=== PATIENT | male | born 1970 | race Caucasian/White ===

== ENCOUNTER 2020-09-12 18:09 | Emergency (ER) | payer SELFPAY ==
[2020-09-12] MEDS ORDERED: HYDROmorphone 0.5 MG/0.5 ML Syringe IVPUSH ONE ×2 (18:49→19:32)
[2020-09-12] MEDS ORDERED: Ondansetron 4 MG/2 ML SDV IVPUSH ONE (18:49)
[2020-09-12] MEDS ORDERED: Sodium Chloride 0.9% 1,000 ML IV SCH (19:00)
[2020-09-12] MEDS ORDERED: Ketorolac 30 MG/ML SDV IVPUSH ONE (19:04)
[2020-09-12] MEDS ORDERED: Ketorolac 30 MG/ML SDV ONE (19:05)
[2020-09-12] MEDS ORDERED: Cyclobenzaprine 10 MG Tab PO ONE (20:09)
--- NOTE | 2020-09-12 20:39 | EDM.PDOC ---
ED HPI GENERAL MEDICAL PROBLEM - General Chief Complaint: Back Pain or Injury Stated Complaint: [facility] Time Seen by Provider: 09/12/20 18:53 Source of Information: Reports: Patient, RN Notes Reviewed History Limitations: Reports: No Limitations - History of Present Illness INITIAL COMMENTS - FREE TEXT/NARRATIVE: Patient is a 50-year-old male presenting to the emergency department with complaints of acute onset of mid midline back pain as well as left-sided back pain. States that he was at work when the pain came on acutely. He has not done any recent heavy lifting or injured his back in any way. He has no history of chronic back pain. Denies any history of kidney stones. He describes the pain as constant with occasional episodes of worsening pain. Vital signs on triage were stable. Blood pressure 139/93, pulse 68, temperature 96.9, respiratory 16, oxygen 100% on room air. Middle Back Pain Score (Numeric/FACES): 2 - Related Data Allergies Allergy/AdvReac Type Severity Reaction Status Date / Time Influenza Virus Vaccines Allergy Anaphylactic Verified 09/12/20 18:15 Shock tetanus and diphtheria Allergy Anaphylactic Verified 09/12/20 18:15 toxoids Shock Home Meds: Home Meds . [No Known Home Meds] 09/12/20 [History] Past Medical History - Past Health History Medical/Surgical History: Denies Medical/Surgical History Social & Family History - Tobacco Use Tobacco Use Status *Q: Current Every Day Tobacco User Years of Tobacco use: 30 Packs/Tins Daily: 0.5 - Caffeine Use Caffeine Use: Reports: Energy Drinks - Recreational Drug Use Recreational Drug Use: No ED ROS GENERAL - Review of Systems Review Of Systems: See Below Constitutional: Reports: No Symptoms. Denies: Fever, Chills, Weakness HEENT: Reports: No Symptoms Respiratory: Reports: No Symptoms. Denies: Shortness of Breath, Pleuritic Chest Pain Cardiovascular: Denies: Chest Pain, Lightheadedness, Palpitations Endocrine: Reports: No Symptoms GI/Abdominal: Reports: Abdominal Pain (mild intermittent with episodes of worsening pain) : Reports: No Symptoms Musculoskeletal: Reports: Back Pain Skin: Reports: No Symptoms Neurological: Reports: No Symptoms. Denies: Dizziness, Headache Psychiatric: Reports: No Symptoms Hematologic/Lymphatic: Reports: No Symptoms Immunologic: Reports: No Symptoms ED EXAM,LOWER BACK PAIN/INJURY - Physical Exam Exam: See Below General Appearance: Alert, Moderate Distress Respiratory/Chest: No Respiratory Distress, Lungs Clear, Normal Breath Sounds, No Accessory Muscle Use, Chest Non-Tender Cardiovascular: Normal Peripheral Pulses, Regular Rate, Rhythm, No Edema, No Gallop, No JVD, No Murmur, No Rub GI/Abdominal: Normal Bowel Sounds, Soft, Non-Tender, No Organomegaly, No Distention, No Abnormal Bruit, No Mass Back Exam: Normal Inspection, Full Range of Motion, CVA Tenderness (L). No: CVA Tenderness (R) Neurological: Alert, Normal Mood/Affect, Normal Dorsiflexion, CN II-XII Intact, Normal Plantar Flexion, Normal Gait, Normal Reflexes, No Motor/Sensory Deficits, Oriented x 3 Psychiatric: Normal Affect, Normal Mood Skin Exam: Cool, Diaphoretic #1 Interpretation EKG Date: 09/12/20 Time: 19:57 Rhythm: NSR Rate (Beats/Min): 51 [place]: Normal P-Wave: Present QRS: Normal ST-T: Normal QT: Normal Comparison: NA - No Prior EKG #2 Interpretation EKG Date: 09/12/20 Time: 21:21 Rhythm: NSR Rate (Beats/Min): 71 [place]: Normal P-Wave: Present QRS: Normal ST-T: Normal QT: Normal Comparison: No Change Course - Vital Signs Last Recorded V/S: Last Vital Signs Temp 96.9 F 09/12/20 18:16 Pulse 65 09/12/20 20:40 Resp 16 09/12/20 18:16 BP 156/98 H 09/12/20 20:40 Pulse Ox 100 09/12/20 18:16 - Orders/Labs/Meds Labs: Laboratory Tests 09/12/20 09/12/20 09/12/20 Range/Units 18:44 18:44 18:44 WBC 8.69 (4.23-9.07) K/mm3 RBC 5.82 (4.63-6.08) M/mm3 Hgb 16.3 (13.7-17.5) gm/dl Hct 47.7 (40.1-51.0) % MCV 82.0 (79.0-92.2) fl MCH 28.0 (25.7-32.2) pg MCHC 34.2 (32.2-35.5) g/dl RDW Std Deviation 40.0 (35.1-43.9) fL Plt Count 218 (163-337) K/mm3 MPV 9.3 L (9.4-12.3) fl Neut % (Auto) 51.5 (34.0-67.9) % Lymph % (Auto) 38.4 (21.8-53.1) % [place] % (Auto) 7.0 (5.3-12.2) % Eos % (Auto) 2.1 (0.8-7.0) Baso % (Auto) 0.8 (0.1-1.2) % Neut # (Auto) 4.47 (1.78-5.38) K/mm3 Lymph # (Auto) 3.34 (1.32-3.57) K/mm3 [place] # (Auto) 0.61 (0.30-0.82) K/mm3 Eos # (Auto) 0.18 (0.04-0.54) K/mm3 Baso # (Auto) 0.07 (0.01-0.08) K/mm3 D-Dimer, Quantitative (0.19-0.50) mg/L Sodium 142 (136-145) mEq/L Potassium 4.2 (3.5-5.1) mEq/L Chloride 105 (98-107) mEq/L Carbon Dioxide 27 (21-32) mEq/L Anion Gap 14.2 (5-15) BUN 13 (7-18) mg/dL Creatinine 1.4 H (0.7-1.3) mg/dL Est Cr Clr Drug Dosing 65.74 mL/min Estimated GFR (MDRD) 53 (>60) mL/min BUN/Creatinine Ratio 9.3 L (14-18) Glucose 100 (74-106) mg/dL Calcium 9.2 (8.5-10.1) mg/dL Total Bilirubin 0.5 (0.2-1.0) mg/dL AST 18 (15-37) U/L ALT 34 (16-63) U/L Alkaline Phosphatase 86 (46-116) U/L Troponin I < 0.017 (0.00-0.056) ng/mL C-Reactive Protein (<1.0) mg/dL Total Protein 7.4 (6.4-8.2) g/dl Albumin 3.8 (3.4-5.0) g/dl Globulin 3.6 gm/dL Albumin/Globulin Ratio 1.1 (1-2) Urine Color (Yellow) Urine Appearance (Clear) Urine pH (5.0-8.0) Ur Specific [place] (1.005-1.030) Urine Protein (Negative) Urine Glucose (UA) (Negative) Urine Ketones (Negative) Urine Occult Blood (Negative) Urine Nitrite (Negative) Urine Bilirubin (Negative) Urine Urobilinogen (0.2-1.0) Ur Leukocyte Esterase (Negative) Urine RBC (0-5) /hpf Urine WBC (0-5) /hpf Ur Squamous Epith Cells (0-5) /hpf Urine Bacteria (FEW) /hpf Urine Mucus (FEW) /hpf SARS-CoV-2 RNA (EDUARDO) (NEGATIVE) 09/12/20 09/12/20 09/12/20 Range/Units 18:44 18:44 19:38 WBC (4.23-9.07) K/mm3 RBC (4.63-6.08) M/mm3 Hgb (13.7-17.5) gm/dl Hct (40.1-51.0) % MCV (79.0-92.2) fl MCH (25.7-32.2) pg MCHC (32.2-35.5) g/dl RDW Std Deviation (35.1-43.9) fL Plt Count (163-337) K/mm3 MPV (9.4-12.3) fl Neut % (Auto) (34.0-67.9) % Lymph % (Auto) (21.8-53.1) % [place] % (Auto) (5.3-12.2) % Eos % (Auto) (0.8-7.0) Baso % (Auto) (0.1-1.2) % Neut # (Auto) (1.78-5.38) K/mm3 Lymph # (Auto) (1.32-3.57) K/mm3 [place] # (Auto) (0.30-0.82) K/mm3 Eos # (Auto) (0.04-0.54) K/mm3 Baso # (Auto) (0.01-0.08) K/mm3 D-Dimer, Quantitative 11.81 H (0.19-0.50) mg/L Sodium (136-145) mEq/L Potassium (3.5-5.1) mEq/L Chloride (98-107) mEq/L Carbon Dioxide (21-32) mEq/L Anion Gap (5-15) BUN (7-18) mg/dL Creatinine (0.7-1.3) mg/dL Est Cr Clr Drug Dosing mL/min Estimated GFR (MDRD) (>60) mL/min BUN/Creatinine Ratio (14-18) Glucose (74-106) mg/dL Calcium (8.5-10.1) mg/dL Total Bilirubin (0.2-1.0) mg/dL AST (15-37) U/L ALT (16-63) U/L Alkaline Phosphatase (46-116) U/L Troponin I (0.00-0.056) ng/mL C-Reactive Protein 1.0 (<1.0) mg/dL Total Protein (6.4-8.2) g/dl Albumin (3.4-5.0) g/dl Globulin gm/dL Albumin/Globulin Ratio (1-2) Urine Color Yellow (Yellow) Urine Appearance Clear (Clear) Urine pH 7.0 (5.0-8.0) Ur Specific [place] 1.025 (1.005-1.030) Urine Protein Trace H (Negative) Urine Glucose (UA) Negative (Negative) Urine Ketones Negative (Negative) Urine Occult Blood Trace-intact H (Negative) Urine Nitrite Negative (Negative) Urine Bilirubin Negative (Negative) Urine Urobilinogen 0.2 (0.2-1.0) Ur Leukocyte Esterase Negative (Negative) Urine RBC 0-5 (0-5) /hpf Urine WBC 0-5 (0-5) /hpf Ur Squamous Epith Cells 0-5 (0-5) /hpf Urine Bacteria Few (FEW) /hpf Urine Mucus Few (FEW) /hpf SARS-CoV-2 RNA ([place]) (NEGATIVE) 09/12/20 Range/Units 20:42 WBC (4.23-9.07) K/mm3 RBC (4.63-6.08) M/mm3 Hgb (13.7-17.5) gm/dl Hct (40.1-51.0) % MCV (79.0-92.2) fl MCH (25.7-32.2) pg MCHC (32.2-35.5) g/dl RDW Std Deviation (35.1-43.9) fL Plt Count (163-337) K/mm3 MPV (9.4-12.3) fl Neut % (Auto) (34.0-67.9) % Lymph % (Auto) (21.8-53.1) % [place] % (Auto) (5.3-12.2) % Eos % (Auto) (0.8-7.0) Baso % (Auto) (0.1-1.2) % Neut # (Auto) (1.78-5.38) K/mm3 Lymph # (Auto) (1.32-3.57) K/mm3 [place] # (Auto) (0.30-0.82) K/mm3 Eos # (Auto) (0.04-0.54) K/mm3 Baso # (Auto) (0.01-0.08) K/mm3 D-Dimer, Quantitative (0.19-0.50) mg/L Sodium (136-145) mEq/L Potassium (3.5-5.1) mEq/L Chloride (98-107) mEq/L Carbon Dioxide (21-32) mEq/L Anion Gap (5-15) BUN (7-18) mg/dL Creatinine (0.7-1.3) mg/dL Est Cr Clr Drug Dosing mL/min Estimated GFR (MDRD) (>60) mL/min BUN/Creatinine Ratio (14-18) Glucose (74-106) mg/dL Calcium (8.5-10.1) mg/dL Total Bilirubin (0.2-1.0) mg/dL AST (15-37) U/L ALT (16-63) U/L Alkaline Phosphatase (46-116) U/L Troponin I (0.00-0.056) ng/mL C-Reactive Protein (<1.0) mg/dL Total Protein (6.4-8.2) g/dl Albumin (3.4-5.0) g/dl Globulin gm/dL Albumin/Globulin Ratio (1-2) Urine Color (Yellow) Urine Appearance (Clear) Urine pH (5.0-8.0) Ur Specific [place] (1.005-1.030) Urine Protein (Negative) Urine Glucose (UA) (Negative) Urine Ketones (Negative) Urine Occult Blood (Negative) Urine Nitrite (Negative) Urine Bilirubin (Negative) Urine Urobilinogen (0.2-1.0) Ur Leukocyte Esterase (Negative) Urine RBC (0-5) /hpf Urine WBC (0-5) /hpf Ur Squamous Epith Cells (0-5) /hpf Urine Bacteria (FEW) /hpf Urine Mucus (FEW) /hpf SARS-CoV-2 RNA (EDUARD[place]) Negative (NEGATIVE) Meds: Medications Discontinued Medications Generic Name Dose Route Start Last Admin Trade Name Freq PRN Reason Stop Dose Admin Cyclobenzaprine HCl 10 mg 09/12/20 20:09 Flexeril PO 09/12/20 20:10 ONETIME ONE Hydromorphone HCl 0.5 mg 09/12/20 18:49 09/12/20 18:56 Dilaudid IVPUSH 09/12/20 18:50 0.5 mg ONETIME ONE Administration Hydromorphone HCl 0.5 mg 09/12/20 19:32 09/12/20 19:40 Dilaudid IVPUSH 09/12/20 19:33 0.5 mg ONETIME ONE Administration Sodium Chloride 1,000 mls @ 150 mls/hr 09/12/20 19:00 09/12/20 18:56 Normal Saline IV 150 mls/hr ASDIRECTED [place]ENT[place] Administration Sodium Chloride 100 mls @ 100 mls/hr 09/12/20 20:45 09/12/20 22:58 Normal Saline IV 100 mls/hr ASDIRECTED [place] Administration Iopamidol 100 ml 09/12/20 20:41 09/12/20 22:59 Isovue-370 (76%) IVPUSH 09/12/20 20:42 100 ml ONETIME ONE Administration Iopamidol 50 ml 09/12/20 20:42 Isovue-370 (76%) IVPUSH 09/12/20 20:43 ONETIME ONE Ketorolac Tromethamine 30 mg 09/12/20 19:04 09/12/20 19:07 Toradol IVPUSH 09/12/20 19:05 30 mg ONETIME ONE Administration Ketorolac Tromethamine Confirm 09/12/20 19:05 09/12/20 19:09 Toradol Administered 09/12/20 19:06 Not Given Dose 30 mg .ROUTE .STK-MED ONE Labetalol HCl 20 mg 09/13/20 00:03 09/13/20 00:19 Normodyne IVPUSH 09/13/20 00:04 20 mg ONETIME ONE Administration Protocol Ondansetron HCl 4 mg 09/12/20 18:49 09/12/20 18:56 Zofran IVPUSH 09/12/20 18:50 4 mg ONETIME ONE Administration - Re-Assessments/Exams Free Text/Narrative Re-Assessment/Exam: Patient is a 50-year-old male presenting to the emergency department with complaints of acute onset of severe mid back and left flank pain. On presentation, he is in a significant amount of pain. He is pale and diaphoretic and does appear ill. He denies any acute injuries to his back. Describes his pain is constant with occasional episodes of worsening pain. Denies any known history of kidney stones. He has no chest pain. Complains of abdominal pain during episodes of worsening back pain. I have ordered CBC, CMP, CRP, D-dimer, troponin, EKG, abdomen pelvis CT without contrast to assess for kidney stones as well as status of the aorta. I have ordered normal saline at 150 mils per hour as well as Dilaudid 0.5 mg, Toradol 30 mg, Zofran 4 mg. 09/12/201939 Patient continues to have significant discomfort. I ordered a second dose of Dilaudid 0.5 mg IV. 09/12/202049 Hematology was significant for a D-dimer elevated at 11.8. Remaining work-up was negative. Troponins negative. CT scan of the abdomen pelvis showed no sign of acute intra-abdominal pathology. There is a 3 cm aneurysmal dilatation of the infrarenal abdominal aorta. Radiologist addendum also identifies a 3 mm in diameter calcification in the central penis partially included in the [id number]. While nonspecific, with the appropriate symptoms, this could represent a nonobstructing urethral stone. Case discussed with Dr. Mcguire. Given the patient's significant elevation in D-dimer of 11.8, I have ordered a CT angiogram of chest and abdomen to better assess the aorta as well as look for pulmonary emboli in the lungs. Patient has no pain, warmth, or swelling of his lower extremities. We have also ordered a 1 hour Covid test as elevated D- dimer can be associated with Covid. 09/12/20 23:15 CT angiogram of the chest abdomen shows "eccentric soft tissue is present along the aorta from the mid arch just distal to the left subclavian artery to the diaphragmatic hiatus. Appearance consistent with subintimal hematoma. No aneurysm. No hemomediastinum." Called and spoke with the vascular surgeons on- call at both [facility] and [facility]. Both advised that patient would likely need an endograft which is unfortunate not a service they offer in their facility. They recommended consult with cardiovascular surgery at [facility] or [facility]. [facility] been [facility]. He is going to contact the cardiovascular surgeon on-call and have her review the images. They will call me back once the surgeon has reviewed of them. Patient's vital signs continue be stable. Blood pressure 150/95, pulse 80, oxygen saturation 99, respiratory 18. His pain is currently adequately managed. 09/12/20 23:32 Phone call received back from [facility] [address] Ram, vascular surgeon. She had not reviewed the images yet but wanted to get a further description of what the report says. Advised radiologist reads on the report. She is going to review the images and call us back. 09/13/20 00:17 1 call received back from the 1 call nurse at [facility]. She verbalized that Dr. 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 She would like him transferred to [facility] and admitted under hospitalist, Dr. Hurt. Spoke with Dr. Hurt. He requested that we give labetalol 20 mg IV to reduce his blood pressure to under 120 systolic and saline lock his IV. We will dispatch [facility] flight crew for transport by fixed wing. Patient updated and he is in agreement with this plan. Pain continues to be well managed. Vital signs stable. Departure - Departure Time of Disposition: 00:18 Disposition: DC/Tfer to Acute Hospital 02 Condition: Good Clinical Impression: Intramural aortic hematoma - Discharge Information Referrals: PCP,None [Primary Care Provider] - Forms: ED Department Discharge Sepsis Event Note (ED) - Evaluation Sepsis Screening Result: No Definite Risk
[2020-09-12] MEDS ORDERED: Iopamidol 755 Mg/ML 100 ML Bottle IVPUSH ONE (20:41)
[2020-09-12] MEDS ORDERED: Iopamidol 755 MG/ML 50 ML Bottle IVPUSH ONE (20:42)
[2020-09-12] MEDS ORDERED: Sodium Chloride 0.9% 100 ML IV SCH (20:45)
[2020-09-13] MEDS ORDERED: Labetalol 100 MG/20 ML MDV IVPUSH ONE (00:03)
--- NOTE | 2020-09-13 13:18 | CT ---
CT abdomen and pelvis Technique: Multiple axial sections were obtained from above the dome of the diaphragm inferiorly through the pubic symphysis. Intravenous and oral contrast not utilized. Reconstructed coronal and sagittal images were obtained. Findings: Visualized lung bases shows nothing acute. Noncontrast appearance of the liver and spleen shows no focal abnormality. Adrenal glands show no nodule. Pancreas appears within normal limits. Gallbladder contains no calcified gallstones. 2.9 cm aneurysm is seen within the distal abdominal aorta. No retroperitoneal adenopathy is appreciated. Kidneys show no abnormal calcifications. No ureteral dilatation or ureteral stone is seen. No pelvic mass or adenopathy is seen. Appendix is visualized and is normal in size. Multiple colonic diverticuli are seen without evidence of diverticulitis. Fat-containing right inguinal hernia is noted. Bone window settings were reviewed which appear without acute abnormality. Impression: 1. 2.9 cm aneurysm within the distal aorta. 2. Fat-containing right inguinal hernia. 3. Other nonacute findings as noted above. Diagnostic code #3 I agree with preliminary report from [facility], finalized on 09/12/20, 8:54 PM HEALTH ADMINISTRATOR
--- NOTE | 2020-09-13 13:23 | CT ---
CT chest Technique: Multiple axial sections were obtained from above the lung apices inferiorly through the lung bases. Intravenous contrast was utilized. Reconstructed coronal and sagittal images were obtained. Findings: Eccentric soft tissue is noted along the aorta in the mid arch inferiorly to the diaphragmatic hiatus. These findings are most likely representing previous sub-intimal hematoma. There is no evidence of extravasation of contrast into this area at this time. Aorta anteriorly measures slightly at the upper limits of normal at 3.6 cm in dimension. Pulmonary arteries that are seen show no filling defects to indicate pulmonary embolism. Mediastinum shows no adenopathy. No pericardial thickening is appreciated. Slight dependent atelectasis seen posteriorly. No pleural effusions are appreciated. No acute parenchymal change is noted. Bone window settings were reviewed. No acute osseous finding is appreciated. Impression: 1. Diffuse subintimal hematoma which shows no abnormal enhancement. 2. Slightly prominent ascending aorta with a 3.6 cm AP dimension. 3. No other acute abnormality is appreciated. Diagnostic code #3 I agree with preliminary report from [facility], finalized on 09/12/20, 11:23 [address] COMPUTER SYSTEMS SUPPORT SPECIALIST CT abdomen and pelvis multiple axial sections were obtained from above the dome of the diaphragm inferiorly through the pubic symphysis. Intravenous contrast was utilized. No oral contrast has been given. Reconstructed coronal and sagittal images were obtained. Comparison: Prior noncontrast CT abdomen and pelvis study performed earlier on same day. Findings liver contains no focal abnormality. Spleen appears normal. Adrenal glands show no nodule. Kidneys show symmetric contrast enhancement with no evidence of hydronephrosis or mass. Pancreas appears within normal limits. Gallbladder is seen and shows no calcified gallstones. Subintimal hematoma is noted around the upper aorta from the thoracic spine. Distal abdominal aorta is dilated up to 2.9 cm. No retroperitoneal adenopathy or mesenteric abnormalities are seen. The appendix is seen and is normal. No pelvic mass is appreciated. Fat-containing right inguinal hernia is noted. Impression: 1. Minimal sub-intimal hematoma within the upper abdominal aorta which comes from the thoracic aorta. 2. Infra-aortic distal abdominal aortic aneurysm with AP dimension of 2.9 cm. 3. Fat-containing right inguinal hernia with no other acute abnormality being seen. Diagnostic code #2 I agree with preliminary report from [facility], finalized on 09/12/20, 11:23 PM COMPUTER SYSTEMS SUPPORT SPECIALIST
== END 2020-09-13 02:20 ==
LOC: JD.ED 18:09
DX: I71.02 Dissection of abdominal aorta (principal); F17.210 Nicotine dependence, cigarettes, uncomplicated; Z88.7 Allergy status to serum and vaccine; Z20.828 Contact with and (suspected) exposure to other viral communicable diseases
CPT/HCPCS: 36415; 71260; 74176; 74177; 80053; 81001; 84484; 85025; 85379; 86140; 87635; 93005; 96374; 96375; 96376; 99285; J1170; J1885; J2405; J3490; J7030; Q9967; 93010; U0002

== ENCOUNTER 2020-09-17 18:44 | Emergency (ER) | payer SELFPAY ==
[2020-09-17] MEDS ORDERED: Warfarin 5 MG Tab PO ONE (19:07)
[2020-09-17] MEDS ORDERED: Enoxaparin 100 MG/1 ML Syringe SUBCUT ONE (19:07)
--- NOTE | 2020-09-17 19:07 | EDM.PDOC ---
ED HPI GENERAL MEDICAL PROBLEM - General Chief Complaint: General Stated Complaint: need blood thinner meds recently here and transfer Time Seen by Provider: 09/17/20 18:53 Source of Information: Reports: Patient, RN Notes Reviewed History Limitations: Reports: No Limitations - History of Present Illness INITIAL COMMENTS - FREE TEXT/NARRATIVE: Patient is a 50-year-old male presenting to the emergency department with request of receiving a dose of medications. He was discharged from [facility] after having AAA repair and a pulmonary embolism. prescriptions were sent to clinic pharmacy, however he did not realize that they were not open due to the holiday. He is missing his dose of Lovenox, Coumadin, metoprolol, and atorvastatin for today. We had received a call from [facility] earlier in the morning inquiring if we could fill the medications. They sent them to clinic pharmacy, however the closer to this afternoon patient was not there to pick him up in time. He states that he is feeling well but that he does need his medications. He did bring a copy of his discharge instructions which show that he is to take warfarin 5 mg daily, metoprolol succinate 50 mg daily, Lovenox 100 mg daily, and atorvastatin 10 mg daily. - Related Data Allergies Allergy/AdvReac Type Severity Reaction Status Date / Time Influenza Virus Vaccines Allergy Severe Anaphylactic Verified 09/17/20 18:56 Shock tetanus and diphtheria Allergy Severe Anaphylactic Verified 09/17/20 18:56 toxoids Shock Home Meds: Home Meds Enoxaparin [Lovenox] 100 mg SUBCUT DAILY 09/17/20 [History] Metoprolol Succinate [Toprol XL 50mg] 50 mg PO DAILY 09/17/20 [History] Warfarin [Coumadin] 5 mg PO DAILY 09/17/20 [History] atorvaSTATin [Lipitor] 10 mg PO BEDTIME 09/17/20 [History] Past Medical History - Past Health History Medical/Surgical History: Denies Medical/Surgical History Cardiovascular History: Reports: Hypertension Respiratory History: Reports: PE Hematologic History: Reports: Anticoagulation Therapy - Past Surgical History Cardiovascular Surgical History: Reports: AAA Repair Social & Family History - Tobacco Use Tobacco Use Status *Q: Current Every Day Tobacco User Years of Tobacco use: 30 Packs/Tins Daily: 0.5 - Caffeine Use Caffeine Use: Reports: None - Recreational Drug Use Recreational Drug Use: No ED ROS GENERAL - Review of Systems Review Of Systems: See Below Constitutional: Reports: No Symptoms. Denies: Fever, Chills, Weakness HEENT: Reports: No Symptoms Respiratory: Reports: Shortness of Breath. Denies: Cough Cardiovascular: Reports: Dyspnea on Exertion. Denies: Chest Pain, Edema, Lightheadedness, Syncope Endocrine: Reports: No Symptoms GI/Abdominal: Reports: No Symptoms : Reports: No Symptoms Musculoskeletal: Reports: No Symptoms Skin: Reports: No Symptoms Neurological: Reports: No Symptoms Psychiatric: Reports: No Symptoms Hematologic/Lymphatic: Reports: No Symptoms Immunologic: Reports: No Symptoms ED EXAM, GENERAL - Physical Exam Exam: See Below General Appearance: Alert, WD/WN, No Apparent Distress Respiratory/Chest: No Respiratory Distress, Lungs Clear, Normal Breath Sounds, No Accessory Muscle Use, Chest Non-Tender Cardiovascular: Normal Peripheral Pulses, Regular Rate, Rhythm, No Edema, No Gallop, No JVD, No Murmur, No Rub Neurological: Alert, Oriented, CN II-XII Intact, Normal Cognition, Normal Gait, Normal Reflexes, No Motor/Sensory Deficits Psychiatric: Normal Affect, Normal Mood Skin Exam: Warm, Dry, Intact, Normal Color, No Rash Course - Vital Signs Last Recorded V/S: Last Vital Signs Temp 98.9 F 09/17/20 18:52 Pulse 75 09/17/20 18:52 Resp 18 09/17/20 18:52 BP 168/90 H 09/17/20 18:52 Pulse Ox 98 09/17/20 18:52 - Re-Assessments/Exams Free Text/Narrative Re-Assessment/Exam: Patient is a 50-year-old male presenting to the emergency department with request to receive a dose of his medications that were ordered for him on discharge from [facility] yesterday. He did bring a copy of his discharge papers which indicated that he should take Lovenox 100 mg daily, warfarin 5 mg daily, metoprolol succinate 50 mg daily, and atorvastatin 10 mg daily. For some do not carry atorvastatin our facility. [facility], contacted telepharmacy who indicated that simvastatin 10 mg is our therapeutic substitute for atorvastatin. We will administer his daily medications here this evening. He is going to visit with the pharmacist tomorrow with regards to when he should take his meds tomorrow as he took them late today. Prescriptions have already been sent to clinic pharmacy. They are open tomorrow from 9a-2p. Discharge instructions as documented Departure - Departure Time of Disposition: 19:17 Disposition: Home, Self-Care 01 Condition: Good Clinical Impression: Encounter for medication administration - Discharge Information *PRESCRIPTION DRUG MONITORING PROGRAM REVIEWED*: No *COPY OF PRESCRIPTION DRUG MONITORING REPORT IN PATIENT NGHIA: No Referrals: PCP,None [Primary Care Provider] - Additional Instructions: You were seen in the emergency department today to receive a dose of your medications which were discharged from [facility] on. You were administered Coumadin, Lovenox, metoprolol succinate, and simvastatin which is a therapeutic substitute for atorvastatin. Recommend that you picking crew supervisor your medications from the clinic pharmacy tomorrow. They are open from 9 AM to 2 PM. Discussed with the pharmacist when they would recommend that you take tomorrow's dose since you took today's dose late. Return to ER as needed. Sepsis Event Note (ED) - Evaluation Sepsis Screening Result: No Definite Risk - Focused Exam Vital Signs: Vital Signs Temp Pulse Resp BP Pulse Ox 09/17/20 18:52 98.9 F 75 18 168/90 H 98
[2020-09-17] MEDS ORDERED: Metoprolol Succinate 50 MG Tab.ER PO ONE (19:08)
[2020-09-17] MEDS ORDERED: Simvastatin 10 MG Tab PO ONE (19:11)
== END 2020-09-17 19:29 | disposition home or self-care (01) ==
LOC: JD.ED 18:44
DX: Z02.89 Encounter for other administrative examinations (principal); I10 Essential (primary) hypertension; F17.210 Nicotine dependence, cigarettes, uncomplicated; Z86.711 Personal history of pulmonary embolism; Z88.7 Allergy status to serum and vaccine; Z79.01 Long term (current) use of anticoagulants; Z79.899 Other long term (current) drug therapy
CPT/HCPCS: 99281; A9270; J1650

== ENCOUNTER 2020-09-18 10:54 | Emergency (ER) | payer SELFPAY ==
[2020-09-18] MEDS ORDERED: HYDROmorphone 1 MG/ML Syringe IVPUSH ONE (11:13)
[2020-09-18] MEDS ORDERED: LORazepam 2 MG/ML SDV IV ONE (11:14)
[2020-09-18] MEDS ORDERED: Metoclopramide 10 MG/2 ML SDV IVPUSH ONE (11:14)
[2020-09-18] MEDS ORDERED: Sodium Chloride 0.9% 1,000 ML IV SCH (11:15)
--- NOTE | 2020-09-18 11:20 | EDM.PDOC ---
ED HPI GENERAL MEDICAL PROBLEM - General Chief Complaint: Back Pain or Injury Stated Complaint: [facility] Time Seen by Provider: 09/18/20 11:13 Source of Information: Reports: Patient History Limitations: Reports: No Limitations - History of Present Illness INITIAL COMMENTS - FREE TEXT/NARRATIVE: 50-year-old male presents to the ED with severe diffuse lower abdominal pain rating into his lower back. Patient by history was seen through our ED on September 12, 2020 and was diagnosed with a diffuse subintimal hematoma noted along the aorta in the mid arch inferiorly to the diaphragmatic hiatus. There was no evidence of extravasation of contrast into this area at that time aorta anteriorly measured slightly at the upper limits of normal at 3.6 cm in dimension. Pulmonary arteries show no filling defect to suggest pulmonary embolism. CT of the abdomen pelvis done at that time revealed a 2.9 cm aneurysm seen within the distal abdominal aorta with no retroperitoneal adenopathy or leak identified. Patient was flown to [facility] in [place] where he underwent a endovascular procedure. He was discharged from the hospital on September 16. He was seen through our ED last night to get his medications filled i.e. to start Coumadin. Patient states that after he got his Lovenox injection he started to develop severe pain in his lower back last night that is gradually worsened throughout the night. He is moaning and groaning in severe pain in the time of arrival in the ED. He has not ate today. Denies any nausea or vomiting. Pain is 10 out of 10 in his lower back and lower abdomen Onset: Today, Sudden Onset Date: 09/18/20 Onset Time: 00:00 Duration: Hour(s): Location: Reports: Abdomen, Back (Use lower abdominal pain rating to the lower back) Quality: Reports: Ache ( lumbar spine pain pelvic pain), Throbbing Severity: Severe Improves with: Reports: None (None a 10) Worsens with: Reports: None Context: Reports: Other (She was recently diagnosed with a abdominal aortic aneurysm September 12 in our ED. He had a subintimal tear or an hematoma in the ascending aorta above the diaphragm. He was flown to [facility] he underwent an intraoperative procedure --most likely an endovascular stent placement.). Denies: Activity, Exercise, Lifting, Sick Contact, Trauma Associated Symptoms: Reports: Loss of Appetite, Nausea/Vomiting. 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: Other (see below) Back Pain Score (Numeric/FACES): 10 - Related Data Allergies Allergy/AdvReac Type Severity Reaction Status Date / Time Influenza Virus Vaccines Allergy Severe Anaphylactic Verified 09/18/20 11:01 Shock tetanus and diphtheria Allergy Severe Anaphylactic Verified 09/18/20 11:01 toxoids Shock Home Meds: Home Meds Enoxaparin [Lovenox] 100 mg SUBCUT DAILY 09/17/20 [History] Metoprolol Succinate [Toprol XL 50mg] 50 mg PO DAILY 09/17/20 [History] Warfarin [Coumadin] 5 mg PO DAILY 09/17/20 [History] atorvaSTATin [Lipitor] 10 mg PO BEDTIME 09/17/20 [History] Past Medical History - Past Health History Medical/Surgical History: Denies Medical/Surgical History Cardiovascular History: Reports: Hypertension Respiratory History: Reports: PE Hematologic History: Reports: Anticoagulation Therapy - Past Surgical History Cardiovascular Surgical History: Reports: AAA Repair Social & Family History - Tobacco Use Tobacco Use Status *Q: Current Every Day Tobacco User Years of Tobacco use: 30 Packs/Tins Daily: 0.5 - Caffeine Use Caffeine Use: Reports: None - Recreational Drug Use Recreational Drug Use: No - Living Situation & Occupation Living situation: Reports: Single Occupation: Employed ED ROS GENERAL - Review of Systems Review Of Systems: See Below Constitutional: Reports: Decreased Appetite. Denies: Fever, Chills, Malaise, Weakness, Fatigue, Weight Loss HEENT: Reports: No Symptoms Respiratory: Reports: Shortness of Breath. Denies: Wheezing, Pleuritic Chest Pain, Sputum Cardiovascular: Reports: Blood Pressure Problem, Other (And diagnosed with a subintimal tear of the arch of the aorta and ascending aorta and a 2.9 cm abdominal aortic aneurysm 6 days ago. Apparently underwent an endovascular seizure presumably stenting of the aorta. He is unsure what was done.). Jb es: Chest Pain, Claudication, Dyspnea on Exertion, Edema, Lightheadedness, Orthopnea (Neck severe hypertension. Recently had medication adjustments to lower his blood pressure further), Palpitations Endocrine: Reports: Fatigue GI/Abdominal: Reports: Abdominal Pain (Presents with severe diffuse lower abdominal pain rating into his lower back) : Reports: Frequency Musculoskeletal: Reports: Back Pain (Severe low back pain) Skin: Reports: No Symptoms Neurological: Reports: No Symptoms Psychiatric: Reports: No Symptoms Hematologic/Lymphatic: Reports: No Symptoms ED EXAM,LOWER BACK PAIN/INJURY - Physical Exam Exam: See Below Exam Limited By: Respiratory Distress General Appearance: Severe Distress, Other (Temperature is 36.8 with heart rate of 76 in sinus respiratory to 14 with O2 sats of 99% room air BP 182/ 125) Eye Exam: Bilateral Eye: Normal Inspection (No scleral icterus or blepharal pallor.), PERRL Throat/Mouth: Normal Inspection, Normal Lips, Normal Oropharynx Neck: Normal Inspection, Supple, Non-Tender, Full Range of Motion. No: Carotid Bruit, Lymphadenopathy (L), Lymphadenopathy (R) Respiratory/Chest: No Respiratory Distress, Lungs Clear, Normal Breath Sounds, No Accessory Muscle Use, Respiratory Distress, Decreased Breath Sounds (Is are diminished to the lower 20% of lung garnica bilaterally) Cardiovascular: Normal Peripheral Pulses, Regular Rate, Rhythm, No Edema, No Gallop, No Murmur, No Rub GI/Abdominal: Distended (All signs are absent.), Guarding ( guarding and rebound), Rebound (Prepubic Jack), Tender ( Absent abdomen is distended mildly tympanic to percussion. Severe tenderness infraumbilical to suprapubic area with), Abnormal Bowel Sounds Extremities: Normal Inspection, Normal Range of Motion, Non-Tender, Other (Is to both posterior tibials 2+) Neurological: Alert ( and symmetrical), Normal Dorsiflexion, CN II-XII Intact, Oriented x 3 Skin Exam: Warm, Dry, Intact, Normal Color, No Rash #1 Interpretation EKG Date: 09/18/20 Time: 11:04 Rhythm: NSR Rate (Beats/Min): 73 [place]: Normal P-Wave: Enlarged QRS: Other (Or left atrial hypertrophy. Initial poor R wave progression may be due to lead placement. Borderline criteria for left ventricle hypertrophy) ST-T: Other (Wave flattening leads III and aVL nonspecific) EKG Interpretation Comments: Abnormal ECG Course - Vital Signs Last Recorded V/S: Last Vital Signs Temp 36.8 C 09/18/20 11:01 Pulse 76 09/18/20 11:01 Resp 14 09/18/20 11:01 BP 182/125 H 09/18/20 11:01 Pulse Ox 99 09/18/20 11:01 - Orders/Labs/Meds Orders: Active Orders 24 hr Category Date Time Status Chest Abdomen Pelvis w Cont [CT] Stat Exams 09/18/20 11:16 Taken PATIENT RETYPE [BBK] Routine Lab 09/18/20 12:49 Ordered Labetalol [Normodyne] 100 mg Med 09/18/20 12:30 Active Sodium Chloride 0.9% [Normal Saline] 80 ml IV TITRATE Sodium Chloride 0.9% [Normal Saline] 1,000 ml Med 09/18/20 11:15 Active IV ASDIRECTED Sodium Chloride 0.9% [Normal Saline] 100 ml Med 09/18/20 12:00 Active IV ASDIRECTED Sodium Chloride 0.9% [Saline Flush] Med 09/18/20 12:00 Active 10 ml FLUSH BOLUS niCARdipine HCl [Nicardipine HCl] 25 mg Med 09/18/20 13:00 Active Sodium Chloride 0.9% [Normal Saline] 250 ml IV TITRATE Medication Orders Sodium Chloride (Normal Saline) 1,000 mls @ 150 mls/hr IV ASDIRECTED DENTON Last Admin: 09/18/20 11:28 Dose: 150 mls/hr Documented by: VINICIUS Sodium Chloride (Normal Saline) 100 mls @ 60 mls/sec IV ASDIRECTED DENTON Last Admin: 09/18/20 11:55 Dose: 60 mls/sec Documented by: MARILU Labetalol HCl 100 mg/ Sodium (Chloride) 100 mls @ 60 mls/hr IV TITRATE DENTON; Protocol Last Admin: 09/18/20 12:43 Dose: 1 mg/min, 60 mls/hr Documented by: VINICIUS Nicardipine HCl 25 mg/ Sodium (Chloride) 260 mls @ 52 mls/hr IV TITRATE DENTON Last Admin: 09/18/20 13:15 Dose: 5 mg/hr, 52 mls/hr Documented by: VINICIUS Sodium Chloride (Saline Flush) 10 ml FLUSH BOLUS DENTON Last Admin: 09/18/20 11:56 Dose: 10 ml Documented by: MARILU Labs: Laboratory Tests 09/18/20 09/18/20 09/18/20 Range/Units 12:00 12:00 12:00 WBC 13.67 H (4.23-9.07) K/mm3 RBC 5.08 (4.63-6.08) M/mm3 Hgb 14.2 D (13.7-17.5) gm/dl Hct 41.8 (40.1-51.0) % MCV 82.3 (79.0-92.2) fl MCH 28.0 (25.7-32.2) pg MCHC 34.0 (32.2-35.5) g/dl RDW Std Deviation 38.8 (35.1-43.9) fL Plt Count 232 (163-337) K/mm3 MPV 9.9 (9.4-12.3) fl Neut % (Auto) 75.1 H (34.0-67.9) % Lymph % (Auto) 12.9 L (21.8-53.1) % [place] % (Auto) 10.1 (5.3-12.2) % Eos % (Auto) 1.2 (0.8-7.0) Baso % (Auto) 0.3 (0.1-1.2) % Neut # (Auto) 10.27 H (1.78-5.38) K/mm3 Lymph # (Auto) 1.76 (1.32-3.57) K/mm3 [place] # (Auto) 1.38 H (0.30-0.82) K/mm3 Eos # (Auto) 0.16 (0.04-0.54) K/mm3 Baso # (Auto) 0.04 (0.01-0.08) K/mm3 PT 13.0 H (9.7-12.0) SECONDS INR 1.22 APTT 30.4 (21.7-31.4) SECONDS Sodium 134 L (136-145) mEq/L Potassium 4.1 (3.5-5.1) mEq/L Chloride 100 (98-107) mEq/L Carbon Dioxide 26 (21-32) mEq/L Anion Gap 12.1 (5-15) BUN 13 (7-18) mg/dL Creatinine 1.1 (0.7-1.3) mg/dL Est Cr Clr Drug Dosing 81.11 mL/min Estimated GFR (MDRD) > 60 (>60) mL/min BUN/Creatinine Ratio 11.8 L (14-18) Glucose 129 H (74-106) mg/dL Lactic Acid (0.4-2.0) mmol/L Calcium 9.3 (8.5-10.1) mg/dL Total Bilirubin 0.8 (0.2-1.0) mg/dL AST 19 (15-37) U/L ALT 32 (16-63) U/L Alkaline Phosphatase 88 (46-116) U/L C-Reactive Protein 15.7 H* (<1.0) mg/dL Total Protein 7.7 (6.4-8.2) g/dl Albumin 3.2 L (3.4-5.0) g/dl Globulin 4.5 gm/dL Albumin/Globulin Ratio 0.7 L (1-2) Lipase 57 L (73-393) U/L Blood Type Gel Antibody Screen 09/18/20 09/18/20 Range/Units 12:00 12:00 WBC (4.23-9.07) K/mm3 RBC (4.63-6.08) M/mm3 Hgb (13.7-17.5) gm/dl Hct (40.1-51.0) % MCV (79.0-92.2) fl MCH (25.7-32.2) pg MCHC (32.2-35.5) g/dl RDW Std Deviation (35.1-43.9) fL Plt Count (163-337) K/mm3 MPV (9.4-12.3) fl Neut % (Auto) (34.0-67.9) % Lymph % (Auto) (21.8-53.1) % [place] % (Auto) (5.3-12.2) % Eos % (Auto) (0.8-7.0) Baso % (Auto) (0.1-1.2) % Neut # (Auto) (1.78-5.38) K/mm3 Lymph # (Auto) (1.32-3.57) K/mm3 [place] # (Auto) (0.30-0.82) K/mm3 Eos # (Auto) (0.04-0.54) K/mm3 Baso # (Auto) (0.01-0.08) K/mm3 PT (9.7-12.0) SECONDS INR APTT (21.7-31.4) SECONDS Sodium (136-145) mEq/L Potassium (3.5-5.1) mEq/L Chloride (98-107) mEq/L Carbon Dioxide (21-32) mEq/L Anion Gap (5-15) BUN (7-18) mg/dL Creatinine (0.7-1.3) mg/dL Est Cr Clr Drug Dosing mL/min Estimated GFR (MDRD) (>60) mL/min BUN/Creatinine Ratio (14-18) Glucose (74-106) mg/dL Lactic Acid 0.9 (0.4-2.0) mmol/L Calcium (8.5-10.1) mg/dL Total Bilirubin (0.2-1.0) mg/dL AST (15-37) U/L ALT (16-63) U/L Alkaline Phosphatase (46-116) U/L C-Reactive Protein (<1.0) mg/dL Total Protein (6.4-8.2) g/dl Albumin (3.4-5.0) g/dl Globulin gm/dL Albumin/Globulin Ratio (1-2) Lipase (73-393) U/L Blood Type O POSITIVE Gel Antibody Screen Negative Meds: Medications Generic Name Dose Route Start Last Admin Trade Name Freq PRN Reason Stop Dose Admin Sodium Chloride 1,000 mls @ 150 mls/hr 09/18/20 11:15 09/18/20 11:28 Normal Saline IV 150 mls/hr ASDIRECTED DENTON Administration Sodium Chloride 100 mls @ 60 mls/sec 09/18/20 12:00 09/18/20 11:55 Normal Saline IV 60 mls/sec ASDIRECTED DENTON Administration Labetalol HCl 100 mg/ Sodium 100 mls @ 60 mls/hr 09/18/20 12:30 09/18/20 12:43 Chloride IV 1 mg/min TITRATE DENTON 60 mls/hr Administration Protocol 1 MG/MIN Nicardipine HCl 25 mg/ Sodium 260 mls @ 52 mls/hr 09/18/20 13:00 09/18/20 13:15 Chloride IV 5 mg/hr TITRATE DENTON 52 mls/hr Administration 5 MG/HR Sodium Chloride 10 ml 09/18/20 12:00 09/18/20 11:56 Saline Flush FLUSH 10 ml BOLUS EDNTON Administration Discontinued Medications Generic Name Dose Route Start Last Admin Trade Name Catie PRN Reason Stop Dose Admin Hydromorphone HCl 1 mg 09/18/20 11:13 09/18/20 11:18 Dilaudid IVPUSH 09/18/20 11:14 1 mg ONETIME ONE Administration Iopamidol 100 ml 09/18/20 11:53 09/18/20 11:55 Isovue-370 (76%) IVPUSH 09/18/20 11:54 100 ml ONETIME ONE Administration Labetalol HCl 20 mg 09/18/20 12:29 09/18/20 12:40 Normodyne IVPUSH 09/18/20 12:30 4 ml ONETIME ONE Administration Protocol Lorazepam 1 mg 09/18/20 11:14 09/18/20 11:21 Ativan IV 09/18/20 11:15 1 mg ONETIME ONE Administration Metoclopramide HCl 10 mg 09/18/20 11:14 09/18/20 11:21 Reglan IVPUSH 09/18/20 11:15 10 mg ONETIME ONE Administration - Radiology Interpretation Free Text/Narrative:: 50-year-old male presents to the ED with acute onset of severe diffuse lower abdominal pain radiating to his lower back. Of note patient was diagnosed with an subintimal hematoma starting at the arch of the aorta and traveling down to the diaphragm on September 12. He was also diagnosed with a 2.9 cm abdominal aortic aneurysm. He was flown to [facility] in [place] where he underwent some form of endovascular procedure presumably stent placement. He was seen through the ED last night because he needed his medications that he was not able to fill as he got home late Josh ceci to [place]. He is to be on Coumadin and is still on Lovenox injections. Presents with severe lower abdominal pain and back pain suggestive of either dissection of the aorta . He still has posterior tibial pulses to both feet 2+ and symmetrical. Plan IV normal saline at 150 mils per hour. Blood pressure is markedly elevated at this time. Paramedics gave him fentanyl 100 mcg IV in route to [place] with no relief. Given Dilaudid 1 mg IV with Reglan 10 mg IV and Ativan 1 mg IV in the ED. Will address his blood pressure as needed. Stat CT of the chest abdomen pelvis angiogram to be done - Re-Assessments/Exams Free Text/Narrative Re-Assessment/Exam: 09/18/20 12:35 CT of the chest reveals the lungs to appear unremarkable with no consolidation or masses. Pleural space is unremarkable with no pneumothorax no pleural effusion. Heart is unremarkable with no cardiomegaly no pericardial effusion. Aorta shows an endovascular stent graft has been placed in the thoracic aorta distal to the subclavian artery. The covered stent graft traverses the area of intramural hematoma noted on the previous examination September 12. Below the stent graft, dissection flap has developed which extends into the abdominal aorta. The dissection flap terminates just below the diaphragmatic hiatus and does not extend into the region of the visceral branches of the abdominal aorta. 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 The covered stent graft traverses the area of ulceration and there is no longer contrast opacity within the wall of the thoracic aorta at this time. Below the stent graft a dissection flap has developed which extends into the diaphragmatic hiatus area and terminates just before the celiac artery in the abdomen. CT of the abdomen aorta shows significant asymmetric wall thi ckening of the abdominal aorta which appears to be stable when compared to previous examination. No dissection flap is currently present within the intra- abdominal or intrapelvic arterial branches. Celiac trunk and mesenteric arteries appear patent with no occlusion or stenosis. Renal artery shows no occlusion or significant stenosis. Right and left iliac arteries show no occlusion or significant stenosis either. The liver shows no mass. Gallbladder and bile ducts are unremarkable with no calcified stones or ductal dilatation evident. Pancreas is unremarkable no mass no ductal dilatation. Spleen is unremarkable adrenal glands appear unremarkable kidneys and ureters are unremarkable with no solid mass or hydronephrosis. Stomach and bowel unremarkable no obstruction no mucosal thickening few scattered colonic diverticula are present. No evidence of appendicitis. Unremarkable no free air no significant fluid collection in the intraperitoneal space. Lymph nodes are unremarkable with no enlarged lymph nodes identified. Lymph nodes appear unremarkable .Hematology reveals a white count of 13.67 with reported 75% neutrophils on the auto differential. Hemoglobin is 14.2 with hematocrit of 41.8. Platelet count is 232,000. PT is 13.0 with an INR of 1.22 PTT is 30.4 lactic acid is 0.9. Chemistry is pending. 09/18/20 13:05 I was able to speak through the 1 call nurse at [facility] in [place] and she connected me with on-call vascular surgeon Dr. Myers. He looked at the CT scans and felt that at this time the patient should be treated nonsurgically but aggressive management of blood pressure required. Patient will therefore be admitted to the nurses' association executive director Dr Campa at [facility]. I have already started the patient on labetalol 20 mg IV bolus and then drip at 1 mg/h which brought the blood pressure down only minimally. Nicardipine 5 mg/hr was then added to the treatment plan. The nicardipine drip had just been started at the time of discharge. Flight team paramedics are here and will manage the blood pressure to try and achieve a systolic of 130-140 and a diastolic of 80-85 ideally. 13:34: Lab tests reveal a white count of 13.67 with a left shift of 75.1% neutrophils. Hemoglobin is 14.2. Hematocrit was 41.8. Platelet count 232,000. PT was 13.0 with an INR of 1.22 and a PTT of 30.4. Sodium slightly low at 134 potassium 4.1. Chloride was 100 with a bicarb of 26. Anion gap is 12.1. BUN was 13 with a creatinine of 1.1. GFR remains greater than 60. Glucose is 129. Lactic acid 0.9. Calcium was 9.3. Liver function is normal. C-reactive protein is markedly elevated at 15.7 total protein was 7.7 with an albumin fraction of 3.2. Lipase was 57. Of note COVID-19 screen was not repeated today as was negative on September 12. Blood pressure at the time of discharge was 183/103. Departure - Departure Time of Disposition: 13:25 Disposition: DC/Tfer to Acute Hospital 02 Condition: Serious Clinical Impression: Aortic dissection, thoracic - Discharge Information *PRESCRIPTION DRUG MONITORING PROGRAM REVIEWED*: Not Applicable *COPY OF PRESCRIPTION DRUG MONITORING REPORT IN PATIENT NGHIA: Not Applicable Referrals: PCP,None [Primary Care Provider] - Forms: ED Department Discharge Sepsis Event Note (ED) - Evaluation Sepsis Screening Result: No Definite Risk - Focused Exam Vital Signs: Vital Signs Temp Pulse Resp BP Pulse Ox 09/18/20 11:01 36.8 C 76 14 182/125 H 99 - My Orders Last 24 Hours: My Active Orders 09/18/20 11:15 Sodium Chloride 0.9% [Normal Saline] 1,000 ml IV ASDIRECTED 09/18/20 11:16 Chest Abdomen Pelvis w Cont [CT] Stat 09/18/20 12:00 Sodium Chloride 0.9% [Normal Saline] 100 ml IV ASDIRECTED Sodium Chloride 0.9% [Saline Flush] 10 ml FLUSH BOLUS 09/18/20 12:30 Labetalol [Normodyne] 100 mg Sodium Chloride 0.9% [Normal Saline] 80 ml IV TITRATE 09/18/20 12:49 PATIENT RETYPE [BBK] Routine 09/18/20 13:00 niCARdipine HCl [Nicardipine HCl] 25 mg Sodium Chloride 0.9% [Normal Saline] 250 ml IV TITRATE - Assessment/Plan Last 24 Hours: My Active Orders 09/18/20 11:15 Sodium Chloride 0.9% [Normal Saline] 1,000 ml IV ASDIRECTED 09/18/20 11:16 Chest Abdomen Pelvis w Cont [CT] Stat 09/18/20 12:00 Sodium Chloride 0.9% [Normal Saline] 100 ml IV ASDIRECTED Sodium Chloride 0.9% [Saline Flush] 10 ml FLUSH BOLUS 09/18/20 12:30 Labetalol [Normodyne] 100 mg Sodium Chloride 0.9% [Normal Saline] 80 ml IV TITRATE 09/18/20 12:49 PATIENT RETYPE [BBK] Routine 09/18/20 13:00 niCARdipine HCl [Nicardipine HCl] 25 mg Sodium Chloride 0.9% [Normal Saline] 250 ml IV TITRATE
[2020-09-18] MEDS ORDERED: Iopamidol 755 Mg/ML 100 ML Bottle IVPUSH ONE (11:53)
[2020-09-18] MEDS ORDERED: Sodium Chloride 0.9% 10 ML Syringe FLUSH SCH (12:00)
[2020-09-18] MEDS ORDERED: Sodium Chloride 0.9% 100 ML IV SCH (12:00)
[2020-09-18] MEDS ORDERED: Labetalol 100 MG/20 ML MDV IVPUSH ONE (12:29)
[2020-09-18] MEDS ORDERED: Labetalol 100 MG in Sodium Chloride 0.9% 80 ML IV SCH (12:30)
[2020-09-18] MEDS ORDERED: niCARdipine HCl 25 MG in Sodium Chloride 0.9% 250 ML IV SCH (13:00)
--- NOTE | 2020-09-19 09:44 | CT ---
CT chest: Multiple axial sections through the chest were obtained. Intravenous contrast was utilized. Comparison: Prior CT chest of 09/12/20 (9:08 PM) Findings: Stent is seen within the descending thoracic aorta. On review of previous study there is a small ulceration into the hematoma within this area. The small ulceration is not seen on current study compatible with occlusion from the stent. There is diffuse surrounding hematoma being seen within the thoracic aorta which is stable. There is a dissection flap being seen inferior to the stent within the descending aorta. This flap terminates slightly below the diaphragmatic hiatus. No extension into the other portions of the abdominal aorta are definitely appreciated. This flap is an interval change. No pericardial thickening is seen. Small mediastinal lymph nodes are noted which are stable. No axillary adenopathy is seen. Lung window settings were reviewed which show no acute parenchymal abnormality. Minimal dependent atelectasis is seen within both lung bases. Bone window settings were reviewed which show no acute osseous finding. Impression: 1. Stent within the descending thoracic aorta which covers a small ulceration within the descending aorta. 2. Mural clot within the descending thoracic aorta. 3. Dissection flap noted within the distal thoracic aorta starting inferior to the stent and extends slightly below the diaphragmatic hiatus. No other extension into the abdominal aorta is seen. 4. No other acute abnormality is appreciated. Diagnostic code #3 I agree with preliminary report from [facility], finalized on 09/18/20, 1:[address] abdomen and pelvis Technique: Multiple axial sections were obtained from above the dome of the diaphragm inferiorly through the pubic symphysis. Intravenous contrast was utilized. No oral contrast has been given. Findings: Liver contains no focal abnormality. Gallbladder contains no calcified gallstones. Spleen appears normal. Adrenal glands show no nodule. There is a dissection flap being seen within the very upper abdominal aorta which terminates slightly distal to the diaphragmatic hiatus. Atherosclerotic change is noted within the abdominal aorta. Distal aorta is minimally aneurysmal with AP dimension of 2.9 cm. Adrenal glands show no nodule. Pancreas is normal. No retroperitoneal adenopathy is seen. Kidneys show symmetric contrast enhancement without hydronephrosis or mass. No retroperitoneal adenopathy is seen. Appendix is seen which is normal. Diverticuli are seen within the sigmoid colon. No inflammatory change or free fluid is seen. There is a fat-containing right inguinal hernia. Bone window settings were reviewed which show nothing acute within the visualized spine. Impression: 1. Findings as noted above. No change from previous study is seen. Diagnostic code #3 I agree with preliminary report from [email or web address], finalized on 09/18/20, 1:19 PM IT TRAINER
== END 2020-09-18 13:30 ==
LOC: JD.ED 10:54
DX: I71.01 Dissection of thoracic aorta (principal); I10 Essential (primary) hypertension; F17.210 Nicotine dependence, cigarettes, uncomplicated; Z88.7 Allergy status to serum and vaccine; Z79.01 Long term (current) use of anticoagulants; Z79.899 Other long term (current) drug therapy; Z86.711 Personal history of pulmonary embolism
CPT/HCPCS: 36415; 71260; 74177; 80053; 83605; 83690; 85025; 85610; 85730; 86140; 86850; 86900; 86901; 96365; 96375; 99285; J1170; J2060; J2765; J3490; J7030; J7050; Q9967

== ENCOUNTER 2024-03-06 23:43 | Emergency (ER) | payer SELFPAY ==
[2024-03-07] MEDS: Sodium Chloride 0.9% 1,000 ML IV SCH (00:23)
[2024-03-07] MEDS: Aspirin 81 MG Tab.Chew PO ONE (00:23)
[2024-03-07] MEDS: Nitroglycerin/D5W 25 MG/250 ML BOTTLE IV SCH (00:44)
[2024-03-07 00:50] LABS: BASOPHILS ABSOLUTE AUTO 0.1 K/mm3 (0.0-0.2); BASOPHILS PERCENT AUTO 0.7 % (0.0-1.0); EOSINOPHILS ABSOLUTE AUTO 0.3 K/mm3 (0.0-0.4); HEMATOCRIT 47.2 % (42.0-52.0); HEMOGLOBIN 16.3 gm/dl (14.0-18.0); IMMATURE GRAN ABSOLUTE AUTO 0.04 K/mm3 (0.00-0.05); IMMATURE GRAN PERCENT AUTO 0.5 % (0.0-0.4); LYMPHOCYTES PERCENT AUTO 34.5 % (24.0-44.0); MEAN CORPUSCULAR HEMOGLOBIN 28.6 pg (28.0-32.0); MEAN CORPUSCULAR HGB CONC 34.5 g/dl (32.0-36.0); MEAN PLATELET VOLUME 10.1 fl (9.4-12.4); MONOCYTES ABSOLUTE AUTO 0.6 K/mm3 (0.0-0.8); MONOCYTES PERCENT AUTO 6.7 % (0.0-8.0); NEUTROPHILS ABSOLUTE AUTO 4.7 K/mm3 (1.8-7.7); NEUTROPHILS PERCENT AUTO 54.6 % (41.0-71.0); PLATELET COUNT,PLT 229 K/mm3 (150-400); RED BLOOD CELL COUNT 5.69 M/mm3 (4.52-5.90); WHITE BLOOD CELL COUNT,WBC 8.56 K/mm3 (3.9-11.3)
[2024-03-07] MEDS: Hyoscyamine 0.125 MG Tab.SL SL ONE (00:50)
[2024-03-07 01:04] LABS: INR 0.97; PROTHROMBIN TIME 10.4 SECONDS (9.7-12.0)
[2024-03-07 01:05] LABS: PTT,PARTIAL THROMBOPLSTIN TIME 28.4 SECONDS (21.7-31.4)
[2024-03-07 01:08] LABS: HEMOGLOBIN A1C 8.5 %
[2024-03-07 01:13] LABS: A/G RATIO 0.9 (1-2); ALBUMIN 3.4 g/dl (3.4-5.0); ANION GAP 9.7 (5-15); BILIRUBIN TOTAL 0.4 mg/dL (0.2-1.0); BUN/CREATININE RATIO 9.2 (14-18); C-REACTIVE PROTEIN 1.43 mg/dL (<0.30); CALCIUM 10.2 mg/dL (8.5-10.1); CREATININE 1.3 mg/dL (0.7-1.3); EST CRCL DRUG DOSING (CG) 68.38 mL/min; MAGNESIUM 1.8 mg/dL (1.8-2.4); POTASSIUM,K 3.7 mEq/L (3.5-5.1); PROTEIN TOTAL,TP 7.4 g/dl (6.4-8.2)
[2024-03-07] MEDS: Labetalol 100 MG/20 ML MDV IVPUSH ONE (02:07)
[2024-03-07] MEDS: Heparin Sodium 5,000 Units/ML Vial IVPUSH ONE ×2 (02:13→02:47)
[2024-03-07] MEDS: Heparin Sodium/D5W 25,000 UNITS/500 ML BAG IV SCH (02:47)
[2024-03-07] MEDS: amLODIPine 5 MG Tab PO ONE (06:27)
== END 2024-03-07 07:45 ==
LOC: JD.ED 23:43
DX: I21.4 Non-ST elevation (NSTEMI) myocardial infarction (principal); E11.65 Type 2 diabetes mellitus with hyperglycemia; I10 Essential (primary) hypertension; Z88.7 Allergy status to serum and vaccine
CPT/HCPCS: 36415; 71045; 80053; 83036; 83735; 83880; 84484; 85025; 85610; 85730; 86140; 93005; 96365; 96366; 96367; 96375; 99285; A9270; J1644; J1921; J2305; J7030; 93010